=== PATIENT | female | born 2000 | race Caucasian/White ===

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

== ENCOUNTER 2018-04-07 19:26 | Emergency (ER) | payer OTHER ==
[~2018-04-07] VITALS: Ht 172.7 cm; Wt 93.0 kg
[2018-04-07 22:21] VITALS: BP 148/88
== END 2018-04-07 22:14 | disposition home or self-care (01) ==
LOC: ED 19:26
DX: O9A.212 Injury, poisoning and certain other consequences of external causes complicating pregnancy, second trimester (principal); S60.011A Contusion of right thumb without damage to nail, initial encounter; R22.0 Localized swelling, mass and lump, head; K21.9 Gastro-esophageal reflux disease without esophagitis; Z88.0 Allergy status to penicillin; Z79.899 Other long term (current) drug therapy; Z3A.20 20 weeks gestation of pregnancy; V43.52XA Car driver injured in collision with other type car in traffic accident, initial encounter; Y93.I9 Activity, other involving external motion; Y92.488 Other paved roadways as the place of occurrence of the external cause; Y99.8 Other external cause status

== ENCOUNTER 2019-01-07 09:23 | Emergency (ER) | payer OTHER ==
[~2019-01-07] VITALS: Ht 172.7 cm; Wt 88.5 kg
[2019-01-07 09:25] VITALS: BP 120/70
== END 2019-01-07 10:30 | disposition home or self-care (01) ==
LOC: ED 09:23
DX: S63.501A Unspecified sprain of right wrist, initial encounter (principal); K21.9 Gastro-esophageal reflux disease without esophagitis; Z88.0 Allergy status to penicillin; Z79.899 Other long term (current) drug therapy; W01.0XXA Fall on same level from slipping, tripping and stumbling without subsequent striking against object, initial encounter; Y93.89 Activity, other specified; Y92.89 Other specified places as the place of occurrence of the external cause; Y99.8 Other external cause status

== ENCOUNTER 2019-03-08 13:02 | Emergency (ER) | payer OTHER ==
[~2019-03-08] VITALS: Ht 172.7 cm; Wt 95.3 kg
[2019-03-08 13:02] VITALS: BP 112/66
[2019-03-08] MEDS ORDERED: ZITHROMAX250 MG PO (14:48)
== END 2019-03-08 15:02 | disposition home or self-care (01) ==
LOC: ED 13:02
DX: J40 Bronchitis, not specified as acute or chronic (principal); K21.9 Gastro-esophageal reflux disease without esophagitis; Z88.0 Allergy status to penicillin; Z79.899 Other long term (current) drug therapy

== ENCOUNTER 2019-04-07 22:57 | Emergency (ER) | payer OTHER ==
[~2019-04-07] VITALS: Ht 172.7 cm; Wt 95.3 kg
[2019-04-07] MEDS ORDERED: DEPO PROVER150 MG/M1 IM (23:00)
[2019-04-07 23:02] VITALS: BP 110/67
[2019-04-08] MEDS ORDERED: TAMIFLU 75MG CA75 MG PO (00:10)
[2019-04-08] MEDS ORDERED: ZOFRAN4 MG PO (00:10)
== END 2019-04-08 00:56 | disposition home or self-care (01) ==
LOC: ED 22:57
DX: J10.1 Influenza due to other identified influenza virus with other respiratory manifestations (principal); K21.9 Gastro-esophageal reflux disease without esophagitis; Z88.0 Allergy status to penicillin

== ENCOUNTER 2022-04-12 09:40 | Emergency (ER) | payer OTHER ==
[~2022-04-12] VITALS: Wt 99.8 kg
[~2022-04-12 09:40] MED LIST changes: +DEPO PROVER150 MG/M1 IM; +TAMIFLU 75MG CA75 MG PO; +ZOFRAN4 MG PO
[2022-04-12 09:51] VITALS: BP 139/82
[2022-04-12] MEDS ORDERED: FLONASE ALLERG9.9 ML NAS (12:07)
[2022-04-12] MEDS ORDERED: MUCINEX DM ER1 EACH PO (12:07)
== END 2022-04-12 12:12 | disposition home or self-care (01) ==
LOC: ED 09:40
DX: B34.9 Viral infection, unspecified (principal); Z20.822 Contact with and (suspected) exposure to COVID-19; Z88.0 Allergy status to penicillin